=== PATIENT | female | born 1995 | race Caucasian/White ===

== ENCOUNTER 2017-11-20 15:59 | Emergency (ER) | payer BC, OTHER ==
[2017-11-20 16:14] VITALS: BP 116/82
--- NOTE | 2017-11-20 16:56 | UC ---
Complaint Female HPI - HPI Summary HPI Summary: Patient presents with complaints of painful genital lesion after unprotected intercourse. She also complains of yellow vaginal discharge 2 days. She reports pain with urination. She reports swollen lymph nodes of her groin areas. She denies nausea or vomiting. - History Of Current Complaint Chief Complaint: [facility] Stated Complaint: FEMALE PERSONAL Time Seen by Provider: 11/20/17 16:19 Hx Obtained From: Patient Hx Last Menstrual Period: one week ago Onset/Duration: Sudden Onset, Lasting Days Timing: Constant Severity Initially: Moderate Severity Currently: Moderate Pain Intensity: 0 Character: Sharp Aggravating Factor(s): Lamar, Urination Associated Signs And Symptoms: Positive: Negative - Risk Factors Ectopic Risk Factor: Negative - Allergies/Home Medications Allergies/Adverse Reactions: Allergies Allergy/AdvReac Type Severity Reaction Status Date / Time No Known Allergies Allergy Verified 11/20/17 16:15 PMH/Surg Hx/FS Hx/Imm Hx Previously Healthy: Yes - Surgical History Surgical History: Yes Surgery Procedure, Year, and Place: At 6 mos of age had a dermoid cyst removed by Dr. Cal Knox - Family History Known Family History: Negative: Diabetes - Social History Occupation: Employed Full-time Lives: Alone Alcohol Use: Occasionally Substance Use Type: Prescribed Smoking Status (MU): Never Smoked Tobacco - Immunization History Vaccination Up to Date: Yes Review of Systems Constitutional: Negative Skin: Negative Eyes: Negative ENT: Negative Respiratory: Negative Cardiovascular: Negative Gastrointestinal: Negative Genitourinary: Vaginal/Penile Discharge, Vaginal/Penile Pain, Ulceration/Lesion Motor: Negative Neurovascular: Negative Musculoskeletal: Negative Neurological: Negative Psychological: Negative Is Patient Immunocompromised?: No All Other Systems Reviewed And Are Negative: Yes Physical Exam Triage Information Reviewed: Yes Appearance: Well-Appearing Vital Signs: Initial Vital Signs Temp 98.4 F 11/20/17 16:11 Pulse 92 11/20/17 16:11 Resp 18 11/20/17 16:11 BP 116/82 11/20/17 16:11 Pulse Ox 100 11/20/17 16:11 Vital Signs Reviewed: Yes Eye Exam: Normal ENT Exam: Normal Neck exam: Normal Neck: Positive: 1 Respiratory Exam: Normal Cardiovascular Exam: Normal Abdominal Exam: Normal Pelvic Exam: Positive: Lesions, Ulcers, Other - internal vaginal exam not accomplished due to pain and patients request to stop, therefore exam aborted. vesicular lesions noted on labia major and minor. Musculoskeletal Exam: Normal Neurological Exam: Normal Skin Exam: Normal Complaint Female Dx - Course Course Of Treatment: Patient presents with genital herpes. Vaginal exam attempted and patient was in too much pain to proceeds. Culture of the external lesions obtained and patient was treated with Famvir 500 mg tid x 10 days, and told to follow up with [facility] in 10 days. Urine HCG was negative, GC/CT pending. Patient will make her own appointment with [facility]. UA hand leuks-culture pending prior to additional treatment, lymphadenopathy most liked reative, also again to follow up with [facility] after 10 days of treatment and if persistent imaging would be indicated. Patient verbalized understanding of and in agreement with the discharge plan. - Differential Dx/Diagnosis Differential Diagnosis/HQI/PQRI: Other - genital herpes lymphadenopaathy. Provider Diagnoses: genital herpes. lymphadenopathy Discharge - Sign-Out/Discharge Documenting (check all that apply): Discharge/Admit/Transfer - Discharge Plan Condition: Stable Disposition: HOME Prescriptions: Famciclovir(NF) [Famvir(NF)] 500 mg PO TID #30 tab Patient Education Materials: Genital Herpes Simplex (ED) Referrals: Yash Edwards MD [Primary Care Provider] - Mallory Chaidez MD [Medical Doctor] - - Billing Disposition and Condition Condition: STABLE Disposition: HOME
[2017-11-20] MEDS ORDERED: Acyclovir* 400 MG TAB PO ONE (17:03)
[2017-11-20] MEDS ORDERED: Acyclovir* 200 MG CAP ONE (17:08)
--- NOTE | 2017-11-22 16:21 | UC ---
- Progress Note Progress Note: PLS CALL PT. ADVISE THAT SWAB POSTIVIE FOR BV. METRONIDAZOLE 500MG BID X 7 DAYS. ERX SENT TO [facility]. NO ALCOHOL WHILE ON THIS MED. F/U WITH PCP IF NEEDED - ERICKA BONE MD Discharge - Sign-Out/Discharge Documenting (check all that apply): Post-Discharge Follow Up - Discharge Plan Condition: Stable Disposition: HOME Prescriptions: Famciclovir(NF) [Famvir(NF)] 500 mg PO TID #30 tab Patient Education Materials: Genital Herpes Simplex (ED) Referrals: Yash Edwards MD [Primary Care Provider] - Mallory Chaidez MD [Medical Doctor] - - Billing Disposition and Condition Condition: STABLE Disposition: HOME
== END 2017-11-20 17:10 | disposition home or self-care (01) ==
LOC: UCEAST 15:59
DX: A60.09 Herpesviral infection of other urogenital tract (principal); R59.0 Localized enlarged lymph nodes; N76.0 Acute vaginitis; Z32.02 Encounter for pregnancy test, result negative
CPT/HCPCS: 81003; 84702; 87086; 87480; 87491; 87510; 87529; 87591; 87661; 99212; A9270-GY; G0463

== ENCOUNTER 2021-04-28 10:54 | Inpatient (IN) ==
[2021-04-28] MEDS ORDERED: Buffered Lidocaine 1% SYRIN 1 ml INTRADERM ONE (14:07)
[2021-04-28] MEDS ORDERED: Lactated Ringers 1000 ml BAG 1,000 ML IV ONE (14:07)
[2021-04-28 15:25] LABS: Urine Benzodiazepine Screen None Detected (None Detect); Urine Cannabinoids Screen None Detected (None Detect); Urine Opiates Screen None Detected (None Detect)
[2021-04-28 16:07] LABS: Rapid COVID-19 Molecular Undetected (Undetected)
[2021-04-28 20:47] LABS: Rapid COVID-19 Molecular Undetected (Undetected)
[2021-04-29 08:56] LABS: ABS Basophils 0.1 10^3/ul (0-0.2); ABS Eosinophils 0.3 10^3/ul (0-0.6); ABS Lymphocytes 2.1 10^3/ul (1.0-4.8); ABS Monocytes 0.7 10^3/ul (0-0.8); ABS Neutrophils 7.1 10^3/ul (1.5-7.7); Eosinophil % 2.5 %; Hematocrit 33 % (35-47); Hemoglobin 11.5 g/dL (12.0-16.0); Lymphocyte % 20.9 %; Mean Corpuscular HGB Conc 35 g/dL (31-36); Mean Corpuscular Hemoglobin 29 pg (27-31); Mean Corpuscular Volume 83 fL (80-97); Mean Platelet Volume 7.1 fL (7.4-10.4); Platelet Count 210 10^3/uL (150-450); Red Blood Count 4.01 10^6 /uL (3.70-4.87); Red Cell Distribution Width 13 % (10-15); White Blood Count 10.3 10^3/uL (3.5-10.8)
[2021-04-29] MEDS ORDERED: Oxytocin in LR 20 UNITS/1,000 ML BAG IVPB SCH (09:00)
[2021-04-29] MEDS: Lactated Ringers 1000 ml BAG 1,000 ML IV SCH ×2 (10:24→20:22)
[2021-04-29] MEDS ORDERED: OBEPIDURAL 250 ML EPIDURAL ONE (11:40)
[2021-04-29] MEDS ORDERED: Lactated Ringers 1000 ml BAG 500 ML IV PRN ×2 (12:33)
[2021-04-29] MEDS ORDERED: Lactated Ringers 1000 ml BAG 1,000 ML IV ONE (12:33)
[2021-04-29] MEDS ORDERED: Phenylephrine 40 mcg/mL 10mL (400mcg) SYRINGE IV PUSH PRN ×2 (12:33)
[2021-04-29] MEDS ORDERED: Sodium Citrate/Citric Acid LIQ 15 ML UDC PO PRN (12:33)
[2021-04-29] MEDS ORDERED: Lactated Ringers 1000 ml BAG 1,000 ML IV SCH ×2 (13:00)
[2021-04-29] MEDS ORDERED: OBEPIDURAL 250 ML EPIDURAL SCH (13:00)
[2021-04-29 13:30] LABS: Urine Appearance Clear; Urine Bilirubin Negative (Negative); Urine Blood Negative (Negative); Urine Color Colorless; Urine Glucose Negative (Negative); Urine Ketones Negative (Negative); Urine Nitrite Negative (Negative); Urine Protein Negative (Negative); Urine Specific Gravity 1.003 (1.002-1.030); Urine Urobilinogen Negative (Negative)
[2021-04-29] MEDS ORDERED: diPHENhydraMINE 25 mg TAB PO ONE (19:50)
[2021-04-30] MEDS ORDERED: OBEPIDURAL 250 ML EPIDURAL ONE (07:23)
[2021-04-30] MEDS ORDERED: Lidocaine 1% VIAL 10 MG/ML VIAL ONE (08:51)
[2021-04-30] MEDS ORDERED: Glycerin ADULT 2.4 gm SUPP PR PRN (09:19)
[2021-04-30] MEDS ORDERED: Witch Hazel PAD JAR ONE (09:43)
[2021-04-30] MEDS ORDERED: Oxytocin in LR 20 UNITS/1,000 ML BAG IVPB SCH (10:00)
[2021-04-30] MEDS ORDERED: Lactated Ringers 1000 ml BAG 1,000 ML IV SCH (10:00)
[2021-04-30] MEDS: Witch Hazel PAD JAR TOPICAL PRN (10:17)
[2021-04-30] MEDS: Dibucaine 1% OINT 28.35 GM TUBE PR PRN (14:02)
[2021-04-30] MEDS ORDERED: Enoxaparin 80 MG/0.8 ML SYR SUBCUT ONE (15:00)
[2021-05-01 07:08] LABS: ABS Basophils 0.1 10^3/ul (0-0.2); ABS Eosinophils 0.2 10^3/ul (0-0.6); ABS Lymphocytes 2.2 10^3/ul (1.0-4.8); ABS Neutrophils 14.2 10^3/ul (1.5-7.7); Hematocrit 27 % (35-47); Hemoglobin 9.1 g/dL (12.0-16.0); Lymphocyte % 12.4 %; Mean Corpuscular HGB Conc 34 g/dL (31-36); Mean Corpuscular Hemoglobin 29 pg (27-31); Mean Corpuscular Volume 84 fL (80-97); Mean Platelet Volume 7.1 fL (7.4-10.4); Platelet Count 168 10^3/uL (150-450); Red Blood Count 3.17 10^6 /uL (3.70-4.87); Red Cell Distribution Width 14 % (10-15); White Blood Count 17.6 10^3/uL (3.5-10.8)
[2021-05-01] MEDS: Enoxaparin 80 MG/0.8 ML SYR SUBCUT SCH ×2 (09:32→21:44)
[2021-05-02] MEDS: Dibucaine 1% OINT 28.35 GM TUBE PR PRN (00:51)
[2021-05-02] MEDS: Witch Hazel PAD JAR TOPICAL PRN (00:51)
[2021-05-02 08:49] VITALS: BP 122/79
[2021-05-02] MEDS: Enoxaparin 80 MG/0.8 ML SYR SUBCUT SCH (09:13)
== END 2021-05-02 12:45 | disposition home or self-care (01) | DRG 560 ==
LOC: MCHOBOUT 10:54 → MCHOB 12:48
PROVIDERS: ADMIT Obstetrics & Gynecology; ATTEND Obstetrics & Gynecology

== ENCOUNTER 2023-10-20 10:03 | Inpatient (IN) ==
[2023-10-20] MEDS ORDERED: Prochlorperazine 5 mg/ml 2 ml VIAL (10 mg) IV PRN ×2 (10:04→10:54)
[2023-10-20] MEDS ORDERED: Lidocaine 1% VIAL 10 MG/ML 30 ML VIAL INJ PRN (10:54)
[2023-10-20] MEDS: Lactated Ringers 1000 ml BAG 1,000 ML IV ONE (11:12)
[2023-10-20 11:31] LABS: ABS Lymphocytes 0.8 10^3/uL (1.0-4.8); ABS Monocytes 0.8 10^3/uL (0.0-0.9); ABS Neutrophils 15.2 10^3/uL (1.5-7.6); Eosinophil % 0.1 %; Hematocrit 30.1 % (35-45); Hemoglobin 10.3 g/dL (11.5-14.3); Lymphocyte % 4.7 %; Mean Corpuscular Hemoglobin 26.8 pg (27-33); Mean Corpuscular Hgb Conc 34.3 g/dL (31-36); Mean Platelet Volume 7.1 fL (7.5-11.2); Platelet Count 222 10^3/uL (150-450); Red Blood Count 3.86 10^6/uL (3.63-4.92); White Blood Count 16.8 10^3/uL (3.8-11.8)
[2023-10-20 11:52] LABS: Activated Partial Thrombo Time 26.2 seconds (26.0-38.0); INR 0.98 (0.83-1.13)
[2023-10-20 12:15] LABS: Urine Benzodiazepine Screen None Detected (None Detect); Urine Cannabinoids Screen None Detected (None Detect); Urine Opiates Screen None Detected (None Detect)
[2023-10-20] MEDS: Lactated Ringers 1000 ml BAG 1,000 ML IV SCH (12:29)
[2023-10-20] MEDS: OBEPIDURAL (200 ML) 200 ML EPIDURAL ONE (12:41)
[2023-10-20] MEDS ORDERED: Phenylephrine 40 mcg/mL 10mL (400mcg) SYRINGE IV PUSH PRN ×2 (12:51)
[2023-10-20] MEDS ORDERED: Sodium Citrate/Citric Acid LIQ 15 ML UDC PO PRN (12:51)
[2023-10-20] MEDS ORDERED: Lactated Ringers 1000 ml BAG 1,000 ML IV ONE (12:51)
[2023-10-20] MEDS ORDERED: Lactated Ringers 1000 ml BAG 1,000 ML IV SCH ×2 (13:00→18:00)
[2023-10-20] MEDS ORDERED: OBEPIDURAL (200 ML) 200 ML EPIDURAL SCH (13:00)
[2023-10-20 13:46] LABS: Urine Appearance Clear; Urine Bilirubin Negative (Negative); Urine Blood Negative (Negative); Urine Color Colorless; Urine Glucose Negative (Negative); Urine Ketones Negative (Negative); Urine Nitrite Negative (Negative); Urine Protein Negative (Negative); Urine Specific Gravity 1.003 (1.002-1.030); Urine Urobilinogen Negative (Negative); Urine pH 7.5 (5.0-8.0)
[2023-10-20] MEDS: Lidocaine 1.5% EPI 1:200,000 30 ML SDV ONE (14:10)
[2023-10-20] MEDS: Buffered Lidocaine 1% SYRIN 1 ml INTRADERM ONE ×2 (14:10)
[2023-10-20] MEDS: Oxytocin in LR 20,000 MILLI.UNIT/1,000 ML BAG IV SCH (14:18)
[2023-10-20] MEDS ORDERED: Glycerin ADULT 2.4 gm SUPP PR PRN (17:24)
[2023-10-20] MEDS ORDERED: Measles, Mumps,Rubella VACC 0.5 ML/VIAL SUBCUT ONE (17:25)
[2023-10-20] MEDS ORDERED: Oxytocin in LR 20,000 MILLI.UNIT/1,000 ML BAG IV SCH (17:25)
[2023-10-20] MEDS: Dibucaine 1% OINT 28.35 GM TUBE PR PRN (19:13)
[2023-10-20] MEDS: Witch Hazel PAD JAR TOPICAL PRN (19:13)
[2023-10-21] MEDS: Enoxaparin 40 MG/0.4 ML SYR SUBCUT SCH (06:21)
[2023-10-21 06:43] LABS: ABS Eosinophils 0.1 10^3/uL (0.0-0.5); ABS Lymphocytes 1.8 10^3/uL (1.0-4.8); ABS Monocytes 0.8 10^3/uL (0.0-0.9); ABS Neutrophils 10.9 10^3/uL (1.5-7.6); ABS Nucleated RBC 0.01 10^3/ul; Eosinophil % 0.8 %; Hematocrit 25.7 % (35-45); Hemoglobin 8.7 g/dL (11.5-14.3); Lymphocyte % 13.5 %; Mean Corpuscular Hemoglobin 26.6 pg (27-33); Mean Corpuscular Hgb Conc 33.8 g/dL (31-36); Mean Corpuscular Volume 78.6 fL (80-97); Mean Platelet Volume 7.2 fL (7.5-11.2); Nucleated Red Blood Cells % 0.1 %/100WBC (0.0-0.8); Platelet Count 191 10^3/uL (150-450); Red Blood Count 3.27 10^6/uL (3.63-4.92); White Blood Count 13.6 10^3/uL (3.8-11.8)
[2023-10-21] MEDS: Iron Sucrose 200 MG in NS 0.9% 100 ml BAG 100 ML IVPB ONE (13:08)
[2023-10-22 07:59] VITALS: BP 119/56
[2023-10-22] MEDS: Measles, Mumps,Rubella VACC 0.5 ML/VIAL SUBCUT ONE (12:26)
== END 2023-10-22 13:06 | disposition home or self-care (01) | DRG 560 ==
LOC: MCHOBOUT 10:03 → MCHOB 10:52
PROVIDERS: ADMIT Obstetrics & Gynecology; ATTEND Advanced Practice Midwife